=== PATIENT | male | born 1980 | race Caucasian/White ===

== ENCOUNTER 2017-06-13 21:57 | Emergency (ER) | payer OTHER ==
[~2017-06-13] VITALS: Ht 180.3 cm; Wt 74.8 kg
[2017-06-13 22:29] VITALS: BP 118/72
--- NOTE | 2017-06-13 22:48 | PHYS DOC ---
Past Medical History Past Medical History: Anxiety, Depression, Other Additional Past Medical Histor: DDD, CHRONIC BACK PAIN Past Surgical History: Other Additional Past Surgical Histo: L5-S1 FUSION, LAMINECTOMY Alcohol Use: Occasionally Drug Use: None Adult General Chief Complaint Chief Complaint: PAIN CONTROL HPI HPI Patient is a 36 year old male with history of anxiety, depression, chronic back pain with sciatica who presents today with exacerbation of chronic back pain. Patient denies any trauma. Patient states pain is radiating to bilateral lower extremities with numbness and tingling to bilateral toes which is chronic. Patient denies any loss of bowel bladder function. He states he has had multiple lumbar surgeries. He states he was referred to a neurosurgeon at [facility] but he has not had a chance to follow-up. He states he has Dilaudid pills at home and he is not taking them because they are not helping. He is requesting something for pain. Review of Systems Review of Systems Constitutional: Denies fever or chills [] GI: Denies abdominal pain, nausea, vomiting, bloody stools or diarrhea [] : Denies dysuria or hematuria [] Musculoskeletal: chronic low back pain Integument: Denies rash or skin lesions [] Neurologic: Denies headache, focal weakness or sensory changes [] Current Medications Current Medications Current Medications Medications (Trade) Dose Ordered Sig/Stephany Start Time Stop Time Status Last Admin Dose Admin Hydromorphone HCl (Dilaudid) 1 mg 1X ONCE 06/13/17 23:00 06/13/17 23:01 Allergies Allergies Allergies Coded Allergies Type Severity Reaction Last Updated Verified No Known Drug Allergies 06/13/17 No Physical Exam Physical Exam Constitutional: Well developed, well nourished, no acute distress, non-toxic appearance. [] Skin: Warm, dry, no erythema, no rash. [] Back: Diffuse paraspinal muscle tenderness to the lumbar spine, old healed surgical incisions noted on the lumbar spine. Extremities: No tenderness, no cyanosis, no clubbing, ROM intact, no edema. [] Neurologic: Alert and oriented X 3, normal motor function, normal sensory function, no focal deficits noted. [] Psychologic: Affect normal, judgement normal, mood normal. [] Current Patient Data Vital Signs Vital Signs Date Time Temp Pulse Resp B/P (MAP) Pulse Ox O2 Delivery O2 Flow Rate FiO2 06/13/17 22:29 98.5 98 16 118/72 (87) 99 Room Air 98.5 EKG EKG [] Radiology/Procedures Radiology/Procedures [] Course & Med Decision Making Course & Med Decision Making Pertinent Labs and Imaging studies reviewed. (See chart for details) Patient is in the ED with complaints of chronic low back pain with chronic sciatica. He states he has Dilaudid at home but it's not helping with his pain. He states he was referred to a neurosurgeon at [facility] but has not heard from the office to make an appointment. Patient has no cauda equina syndrome symptoms. He was given Dilaudid 1 mg IM in the ED and discharged. He was provided pain clinic doctor for follow-up as well as encouraged to contact his neurosurgeon at [facility] and follow-up JOSELITO. We gave him a doctor's list. Dragon Disclaimer Dragon Disclaimer This electronic medical record was generated, in whole or in part, using a voice recognition dictation system. Departure Departure Impression: Primary Impression: Low back pain Additional Impressions: Sciatica of right side Sciatica of left side Disposition: 01 HOME, SELF-CARE Condition: STABLE Referrals: RICK MANSFIELD MD follow up with your neurosurgeon at and the provided pain clinic doctor as soon as you can Patient Instructions: Back Pain, Adult, Sciatica Additional Instructions: You were seen for chronic low back pain with sciatica. We highly recommend you contact your neurosurgeon at [facility] and follow-up as soon as possible. We also provided you a pain clinic doctor. Follow-up with him. We also provided you a list of primary care doctor's you can follow-up with one of them if you choose to. Problem Qualifiers Primary Impression: Low back pain Chronicity: acute Back pain laterality: bilateral Sciatica presence: with sciatica Sciatica laterality: bilateral sciatica Qualified Codes: M54.42 - Lumbago with sciatica, left side; M54.41 - Lumbago with sciatica, right side ABHILASH ROD APRN Jun 13, 2017 22:48
[2017-06-13] MEDS ORDERED: HYDROmorphone 2 MG/ML VIAL IM ONE (23:00)
== END 2017-06-13 23:08 | disposition home or self-care (01) ==
LOC: ER 21:57
DX: M54.42 Lumbago with sciatica, left side (principal); M54.41 Lumbago with sciatica, right side; G89.29 Other chronic pain; F41.9 Anxiety disorder, unspecified; F32.9 Major depressive disorder, single episode, unspecified
CPT/HCPCS: 96372; 99284; J1170